=== PATIENT | male | born 1995 | race Two or more races ===

== ENCOUNTER 2017-04-11 08:07 | Emergency (ER) | payer MEDICAID ==
[~2017-04-11] VITALS: Ht 182.9 cm; Wt 113.4 kg
[2017-04-11] MEDS ORDERED: SODIUM CHLORIDE 0.9% 1,000 ML IV ONE (10:27)
[2017-04-11] MEDS ORDERED: PANTOPRAZOLE 40 MG TAB PO ONE (10:30)
[2017-04-11 10:58] VITALS: BP 158/82
[2017-04-11 11:04] LABS: Urine RBC None Seen /hpf (0 - 3)
[2017-04-11 11:09] LABS: Basophils # (auto) 0 uL; Basophils % (auto) 0.4 % (0.0-2.0); CONDITION Y; DEFINITIVE SEE PRINTOUT; Eosinophils # (auto) 0.1 uL; Eosinophils % (auto) 0.7 % (0.0-7.0); Hematocrit 41.8 % (41.0-53.0); Hemoglobin 13.7 g/dL (13.5-17.5); Lymphocytes # (auto) 2.2 uL; Lymphocytes % (auto) 20.3 % (10.0-50.0); Mean Corpuscular Hemoglobin 25.4 pg (28.0-32.0); Mean Corpuscular Hgb Conc. 32.8 g/dL (32.0-36.0); Mean Corpuscular Volume 77.5 fL (80.0-100.0); Monocytes # (auto) 0.8 uL; Monocytes % (auto) 7.3 % (0.0-12.0); Neutrophils # (auto) 7.7 uL; Neutrophils % (auto) 71.3 % (37.0-80.0); Platelet Count (auto) 404 10^3/uL (140-450); Red Cell Distribution Width 14.3 % (11.6-16.0); SUSPECT SEE PRINTOUT; White Blood Cell 10.7 10^3/uL (4.4-10.8)
[2017-04-11 11:11] LABS: Urine Bilirubin Negative (Negative); Urine Blood Negative /uL (Negative); Urine Color Yellow (Yellow); Urine Glucose Normal (Normal); Urine Ketone Negative (Negative); Urine Mucus FEW (None Seen); Urine Nitrite Negative (Negative); Urine Urobilinogen Normal (Negative); Urine pH 7.5 (5.0-8.0)
[2017-04-11 11:42] LABS: BUN/Creatinine Ratio 17.1; Calcium 8.8 mg/dL (8.5-10.1); Magnesium 2.2 mg/dL (1.6-2.6); Potassium 3.9 mmol/L (3.5-5.1)
== END 2017-04-11 12:38 | disposition home or self-care (01) ==
LOC: ER 08:07
DX: R07.89 Other chest pain (principal); K21.9 Gastro-esophageal reflux disease without esophagitis
CPT/HCPCS: 36415; 71020; 80048; 81001; 83735; 84443; 85025; 93005; 96360; 96361